=== PATIENT | female | born 1955 | race Caucasian/White ===

== ENCOUNTER 2017-08-02 06:37 | Emergency (ER) | payer MEDICARE, OTHER ==
[2017-08-02 07:26] LABS: Appearance,Urine Clear (Clear); Bilirubin,Urine Negative (Negative); Glucose,Urine (UA) Negative (Negative); Ketones,Urine Negative (Negative); Leukocyte Esterase,Urine Negative (Negative); Nitrite,Urine Negative (Negative); Protein,Urine Negative (Negative); Specific Gravity,Urine 1.015 (1.001-1.035); UA Billing (MACRO vs. MICRO) CHEM
[2017-08-02 07:45] LABS: Basophils # (A) 0.1 k/uL (0-0.2); Basophils % (A) 1 %; CH 25.1; Eosinophils # (A) 0.2 k/uL (0-0.7); Eosinophils % (A) 3 %; HCT 38.8 % (34.0-46.0); HDW 2.64; HGB 12.1 gm/dL (11.4-16.0); Hypochromasia Marked; Luc # (Auto) 0.15; Luc % (Auto) 2; Lymphocytes # (A) 2.1 k/uL (1.0-4.8); Lymphocytes % (A) 33 %; MCH 26.1 pg (25.0-35.0); MCHC 31.1 g/dL (31.0-37.0); MCV 83.9 fL (80.0-100.0); Mean Platelet Volume 6.5; Monocytes # (A) 0.4 k/uL (0-1.0); Monocytes % (A) 6 %; Neutrophils # (A) 3.6 k/uL (1.3-7.7); Neutrophils % (A) 56 %; RBC 4.63 m/uL (3.80-5.40); RDW 14.4 % (11.5-15.5); WBC 6.5 k/uL (3.8-10.6); WBC (Perox) 6.53
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
[2017-08-02 07:56] LABS: ALT 37 U/L (9-52); AST 26 U/L (14-36); Alkaline Phosphatase 116 U/L (38-126); Anion Gap 11 mmol/L; Blood Urea Nitrogen 13 mg/dL (7-17); Calcium 9.8 mg/dL (8.4-10.2); Carbon Dioxide 25 mmol/L (22-30); Chloride 105 mmol/L (98-107); Glucose 178 mg/dL (74-99); Magnesium 1.9 mg/dL (1.6-2.3); Non-African American GFR(MDRD) >60 (>60 ml/min/1.73 sqM); Potassium 4.5 mmol/L (3.5-5.1); Sodium 141 mmol/L (137-145); Total Bilirubin 0.2 mg/dL (0.2-1.3); Total Protein 7.1 g/dL (6.3-8.2)
[2017-08-02 09:52] VITALS: BP 127/68; PULSE 73; RESP 18
[2017-08-02 10:22] VITALS: TEMP 97.9
== END 2017-08-02 10:00 | disposition home or self-care (01) ==
LOC: EC 06:37 → EEVIPCON 06:37 → EC 10:00
DX: F03.90 Unspecified dementia, unspecified severity, without behavioral disturbance, psychotic disturbance, mood disturbance, and anxiety (principal); F31.9 Bipolar disorder, unspecified; Z87.891 Personal history of nicotine dependence; Z79.84 Long term (current) use of oral hypoglycemic drugs; Z79.899 Other long term (current) drug therapy
CPT/HCPCS: 36415; 80053; 81003; 83735; 85025; 99284

== ENCOUNTER 2018-10-28 15:16 | Emergency (ER) | payer MEDICARE, OTHER ==
[2018-10-28] MEDS ORDERED: SODIUM CHLORIDE 0.9% 500 ML 500 ML IV STA (15:38)
[2018-10-28] MEDS ORDERED: SODIUM CHLORIDE 0.9% 1,000 ML IV STA (15:38)
[2018-10-28 16:15] LABS: Basophils % (A) 1 %; Eosinophils # (A) 0.1 k/uL (0-0.7); Eosinophils % (A) 1 %; HCT 37.5 % (34.0-46.0); HGB 11.8 gm/dL (11.4-16.0); Hypochromasia Slight; Lymphocytes # (A) 1.8 k/uL (1.0-4.8); Lymphocytes % (A) 24 %; MCH 27.7 pg (25.0-35.0); MCHC 31.5 g/dL (31.0-37.0); MCV 87.9 fL (80.0-100.0); Mean Platelet Volume 6.5; Monocytes # (A) 0.5 k/uL (0-1.0); Monocytes % (A) 7 %; Neutrophils # (A) 4.8 k/uL (1.3-7.7); Neutrophils % (A) 65 %; Platelet Count 382 k/uL (150-450); RBC 4.26 m/uL (3.80-5.40); RDW 14.6 % (11.5-15.5); WBC 7.3 k/uL (3.8-10.6)
--- NOTE | 2018-10-28 16:16 | CT ---
EXAMINATION TYPE: CT brain wo con DATE OF EXAM: 10/28/2018 COMPARISON: 02/14/2016 HISTORY: 63-year-old female with Seizure activity. TECHNIQUE: Examination was done in axial plane without intravenous contrast. Coronal and sagittal r econstructions performed. CT DLP: 1091.4 mGycm Automated exposure control for dose reduction was used. FINDINGS: There is no evidence of acute intracranial hemorrhage, acute ischemic changes, mass, mass-effect, or extra-axial fluid collection. There is no effacement of cerebral sulci or basal subarachnoid cister ns. There is no hydrocephalus. There is no midline shift. Dominguez-white matter distinction is preserv ed. Mild generalized supratentorial volume loss and mild patchy periventricular white matter hypodensitie s, similar to prior exam. Paranasal sinuses and mastoid air cells well pneumatized. Rightward nasal septal deviation. Orbits an d globes appear intact. IMPRESSION: No acute intracranial abnormality seen. Mild generalized atrophy and changes of chronic small vessel ischemic disease are similar.
[2018-10-28 16:26] LABS: ALT 18 U/L (9-52); AST 17 U/L (14-36); Albumin 3.9 g/dL (3.5-5.0); Alcohol <10 mg/dL; Alkaline Phosphatase 57 U/L (38-126); Anion Gap 10 mmol/L; Blood Urea Nitrogen 19 mg/dL (7-17); Calcium 10.3 mg/dL (8.4-10.2); Carbon Dioxide 24 mmol/L (22-30); Chloride 108 mmol/L (98-107); Glucose 85 mg/dL (74-99); Potassium 4.8 mmol/L (3.5-5.1); Sodium 142 mmol/L (137-145); Total Bilirubin 0.2 mg/dL (0.2-1.3)
--- NOTE | 2018-10-28 16:26 | ED ---
General Adult HPI - General Chief complaint: Recheck/Abnormal Lab/Rx Stated complaint: poss seizure Time Seen by Provider: 10/28/18 15:39 Source: EMS, RN notes reviewed, old records reviewed Mode of arrival: EMS Limitations: no limitations - History of Present Illness Initial comments: 63-year-old female presenting from [facility] with momentary episode of unresponsiveness and concern for seizure. History is obtained from the patient and the patient's sister who is at bedside. Patient has past medical history dementia and bipolar disorder. No known seizure disorder. According to staff at the [facility] she had an episode lasting 5-10 seconds where she was unresponsive, staring into space. No reported postictal. However according to the patient's sister she is somewhat less responsive than normal. Patient is able to answer some questions, she is following commands, alert and oriented 2 , denies any pain complaints. - Related Data Home Medications Medication Instructions Recorded Confirmed Bisacodyl [Dulcolax] 10 mg RECTAL DAILY PRN 02/14/16 10/28/18 Cholecalciferol [Vitamin D3] 2,000 unit PO HS 02/14/16 10/28/18 Magnesium Hydroxide [Milk of 2,400 mg PO DAILY PRN 02/14/16 10/28/18 Magnesia] LORazepam [Ativan] 1 mg PO DAILY 08/02/17 10/28/18 risperiDONE 0.75 mg PO BID@0700,1900 08/02/17 10/28/18 traZODone HCL [Desyrel] 100 mg PO HS 08/02/17 10/28/18 Acetaminophen Tab [Tylenol Tab] 650 mg PO Q8HR PRN 10/28/18 10/28/18 Divalproex Sodium [Depakote 125 mg PO Q8H 10/28/18 10/28/18 Sprinkle] Lisinopril [Zestril] 5 mg PO DAILY 10/28/18 10/28/18 Melatonin 3 mg PO HS 10/28/18 10/28/18 Topiramate [Topamax] 25 mg PO BID 10/28/18 10/28/18 metFORMIN HCL 850 mg PO BID 10/28/18 10/28/18 Allergies Allergy/AdvReac Type Severity Reaction Status Date / Time No Known Allergies Allergy Verified 10/28/18 15:41 Review of Systems ROS Statement: Those systems with pertinent positive or pertinent negative responses have been documented in the HPI. ROS Other: All systems not noted in ROS Statement are negative. Past Medical History Past Medical History: Dementia, Liver Disease, Renal Disease Additional Past Medical History / Comment(s): Hepatitis C History of Any Multi-Drug Resistant Organisms: None Reported Past Surgical History: Bowel Resection, Cholecystectomy Additional Past Surgical History / Comment(s): Unable to obtain what year cholecystectomy done Past Anesthesia/Blood Transfusion Reactions: No Reported Reaction Past Psychological History: Bipolar Smoking Status: Former smoker Past Alcohol Use History: None Reported Past Drug Use History: None Reported - Past Family History Father Family Medical History: Cancer Additional Family Medical History / Comment(s): Father had esophageal cancer, currently has liver cancer General Exam Limitations: no limitations General appearance: alert, in no apparent distress Head exam: Present: atraumatic, normocephalic Eye exam: Present: normal appearance, PERRL ENT exam: Present: normal exam Neck exam: Present: normal inspection. Absent: tenderness, meningismus Respiratory exam: Present: normal lung sounds bilaterally. Absent: respiratory distress, wheezes Cardiovascular Exam: Present: regular rate, normal rhythm GI/Abdominal exam: Present: soft. Absent: distended, tenderness, guarding Extremities exam: Present: normal inspection, normal capillary refill. Absent: pedal edema Neurological exam: Present: alert, CN II-XII intact. Absent: oriented X3, motor sensory deficit Psychiatric exam: Present: normal affect, normal mood Skin exam: Present: warm, dry, intact. Absent: cyanosis, diaphoretic Course Vital Signs 10/28/18 10/28/18 10/28/18 15:25 15:29 16:00 Temperature 97.6 F Pulse Rate 59 L 55 L Respiratory 16 18 63 H Rate Blood Pressure 92/62 92/62 O2 Sat by Pulse 97 100 99 Oximetry 10/28/18 17:00 Temperature Pulse Rate 51 L Respiratory 23 Rate Blood Pressure 103/68 O2 Sat by Pulse 99 Oximetry EKG Findings - EKG Comments: EKG Findings:: Normal sinus on the monitor. Medical Decision Making - Medical Decision Making 63-year-old female with short episode of unresponsiveness and concern for seizure. This episode lasted 5-10 seconds. No epistaxis phase. Patient has a non-focal neurologic exam. She is conversant with her sister who is at bedside. She has a normal CBC, normal CMP stable vitals, normal head CT. There is concern certainly this may have been seizure versus syncopal episode. At this time is decided with the sister at bedside who is her power of trade mark attorney that no further workup will be initiated. Patient will be discharged back to the [facility]. Close observation. Return if needed. - Lab Data Result diagrams: 10/28/18 15:33 10/28/18 15:33 Lab Results 10/28/18 10/28/18 10/28/18 Range/Units 15:33 15:33 16:54 WBC 7.3 (3.8-10.6) k/uL RBC 4.26 (3.80-5.40) m/uL Hgb 11.8 (11.4-16.0) gm/dL Hct 37.5 (34.0-46.0) % MCV 87.9 (80.0-100.0) fL MCH 27.7 (25.0-35.0) pg MCHC 31.5 (31.0-37.0) g/dL RDW 14.6 (11.5-15.5) % Plt Count 382 (150-450) k/uL Neutrophils % 65 % Lymphocytes % 24 % Monocytes % 7 % Eosinophils % 1 % Basophils % 1 % Neutrophils # 4.8 (1.3-7.7) k/uL Lymphocytes # 1.8 (1.0-4.8) k/uL Monocytes # 0.5 (0-1.0) k/uL Eosinophils # 0.1 (0-0.7) k/uL Basophils # 0.0 (0-0.2) k/uL Hypochromasia Slight Sodium 142 (137-145) mmol/L Potassium 4.8 (3.5-5.1) mmol/L Chloride 108 H (98-107) mmol/L Carbon Dioxide 24 (22-30) mmol/L Anion Gap 10 mmol/L BUN 19 H (7-17) mg/dL Creatinine 0.90 (0.52-1.04) mg/dL Est GFR (CKD-EPI)AfAm 80 (>60 ml/min/1.73 sqM) Est GFR (CKD-EPI)NonAf 70 (>60 ml/min/1.73 sqM) Glucose 85 (74-99) mg/dL Calcium 10.3 H (8.4-10.2) mg/dL Total Bilirubin 0.2 (0.2-1.3) mg/dL AST 17 (14-36) U/L ALT 18 (9-52) U/L Alkaline Phosphatase 57 (38-126) U/L Total Protein 7.0 (6.3-8.2) g/dL Albumin 3.9 (3.5-5.0) g/dL Urine Color Yellow Urine Appearance Cloudy H (Clear) Urine pH 7.0 (5.0-8.0) Ur Specific [place] 1.027 (1.001-1.035) Urine Protein Trace H (Negative) Urine Glucose (UA) Negative (Negative) Urine Ketones Negative (Negative) Urine Blood Negative (Negative) Urine Nitrite Negative (Negative) Urine Bilirubin Negative (Negative) Urine Urobilinogen 6.0 (<2.0) mg/dL Ur Leukocyte Esterase Trace H (Negative) Urine RBC 1 (0-5) /hpf Urine WBC 5 (0-5) /hpf Ur Squamous Epith Cells 3 (0-4) /hpf Urine Bacteria Rare H (None) /hpf Hyaline Casts 27 H (0-2) /lpf Urine Mucus Occasional H (None) /hpf Serum Alcohol <10 mg/dL Disposition Clinical Impression: Unresponsive episode Disposition: HOME SELF-CARE Condition: Fair Is patient prescribed a controlled substance at d/c from ED?: No Referrals: Nito Sy MD [Primary Care Provider] - 1-2 days Time of Disposition: 17:55
[2018-10-28 17:12] LABS: Appearance,Urine Cloudy (Clear); Bacteria,Urine Rare /hpf; Bilirubin,Urine Negative (Negative); Blood,Urine Negative (Negative); Color,Urine Yellow; Glucose,Urine (UA) Negative (Negative); Hyaline Casts,Urine 27 /lpf (0-2); Ketones,Urine Negative (Negative); Leukocyte Esterase,Urine Trace (Negative); Mucus,Urine Occasional /hpf; Nitrite,Urine Negative (Negative); Protein,Urine Trace (Negative); RBC,Urine 1 /hpf (0-5); Specific Gravity,Urine 1.027 (1.001-1.035); Squamous Epithelial Cell,Urine 3 /hpf (0-4); WBC,Urine 5 /hpf (0-5)
[2018-10-28 20:14] VITALS: BP 115/69; PULSE 52; RESP 18; TEMP 98.4
== END 2018-10-28 20:14 | disposition home or self-care (01) ==
LOC: EC 15:16
DX: R40.20 Unspecified coma (principal); F03.90 Unspecified dementia, unspecified severity, without behavioral disturbance, psychotic disturbance, mood disturbance, and anxiety; F31.9 Bipolar disorder, unspecified; Z86.19 Personal history of other infectious and parasitic diseases; Z87.891 Personal history of nicotine dependence; Z79.84 Long term (current) use of oral hypoglycemic drugs; Z79.899 Other long term (current) drug therapy
CPT/HCPCS: 99285; 96360; 96361; 36415; 80053; 85025; 81001; 70450; G0480; 80320

== ENCOUNTER 2022-10-28 06:11 | Day surgery (SDC) | payer MEDICARE, OTHER ==
[~2022-10-28 06:11] MED LIST: LACTATED RINGERS 1,000 ML IV SCH; LIDOCAINE 1% (10MG/ML) FOR IV START INTRADERMA PRN
[2022-10-28 07:08] VITALS: RESP 16; TEMP 98
[2022-10-28 07:12] LABS: Glucose,Whole Blood 122 mg/dL (70-110)
[2022-10-28] MEDS ORDERED: PROPOFOL 10 MG/ML 20 ML VIAL IV ONE (07:27)
--- NOTE | 2022-10-28 07:39 | P.PCN ---
Date of Procedure: 10/28/22 Procedure(s) Performed: BRIEF HISTORY: Patient is a 67-year-old, pleasant, white female with history of severe dementia is scheduled for an upper endoscopy as well as colonoscopy as a part of evaluation of iron deficiency anemia. Apparently the patient did not tolerate the prep and hence she is having EGD today.. PROCEDURE PERFORMED: Esophagogastroduodenoscopy with biopsy. PREOPERATIVE DIAGNOSIS: Iron deficiency anemia. IV sedation per anesthesia. PROCEDURE: After informed consent was obtained, the patient was brought into the endoscopy unit. IV sedation was administered by Anesthesia under continuous monitoring. Initially the Olympus GIF-140 video endoscope was inserted into the mouth. Esophagus intubated without any difficulty. It was gradually advanced into the gastric pouch which appeared normal. 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 The scope was advanced into the jejunum and at least 60 cm of the jejunum was visualized and appeared normal. Biopsies were done from the jejunum to rule out celiac disease. The scope was then withdrawn into the gastric pouch and appeared normal. The scope was then withdrawn into the esophagus. The GE junction was located at 36 cm from the incisors. It appeared slightly irregular. The esophagus appeared normal. There were no erosions or ulcerations seen and the patient tolerated the procedure well. IMPRESSION: 1. Evidence of Popeye-en-Y gastric bypass surgery. 2. Normal-appearing gastric pouch and jejunum. RECOMMENDATIONS: The findings of this examination were discussed with the patient as well as her caregiver. Recommend scheduling her for colonoscopy in the near future to evaluate for iron deficiency anemia.
[2022-10-28 08:11] VITALS: BP 121/68; PULSE 65
--- NOTE | 2022-10-28 08:26 | P.ANPRN ---
Procedure Note - Anesthesia - Invasive Line Right Time Out Performed: Yes (Right u/s guided IV) Date of Procedure: 10/28/22 Time of Procedure: 07:05 Location of Patient: PreOp Preparation: Sterile Prep Ultrasound Used: Yes Purpose - Visualization and Identification of Vasculature: Yes Needle Guage: 22 g Image Stored and Saved: Yes Narrative: After several attempts by the nursing staff, anesthesiologist was asked to attempt u/s IV. Patent vein identified on u/s in the right antecubital fossa and a 22g IV was placed under u/s guidance. Pt tolerated well.
== END 2022-10-28 08:13 ==
LOC: ORWHC2ENDO 06:11
PROVIDERS: ATTEND Internal Medicine Gastroenterology
DX: D50.9 Iron deficiency anemia, unspecified (principal); B19.20 Unspecified viral hepatitis C without hepatic coma; Z98.84 Bariatric surgery status; Z79.899 Other long term (current) drug therapy; Z98.890 Other specified postprocedural states
CPT/HCPCS: 88305; 43239; J2704